=== PATIENT | female | born 1985 | race Asian ===

== ENCOUNTER 2017-12-18 17:58 | Emergency (ER) | payer MEDICAID ==
[~2017-12-18] VITALS: Ht 165.1 cm; Wt 63.6 kg
[~2017-12-18 17:58] MED LIST: NAPR-923 PO
[2017-12-18] MEDS ORDERED: GABA-531 PO (18:27)
[2017-12-18 19:54] VITALS: BP 137/81
== END 2017-12-18 20:25 | disposition home or self-care (01) ==
LOC: EMS 17:59
DX: M79.671 Pain in right foot (principal); M79.89 Other specified soft tissue disorders; R03.0 Elevated blood-pressure reading, without diagnosis of hypertension; F17.210 Nicotine dependence, cigarettes, uncomplicated
CPT/HCPCS: 99283